=== PATIENT | male | born 1990 | race Hispanic/Latino ===

== ENCOUNTER 2021-05-29 20:23 | Inpatient (IN) | payer OTHER ==
[~2021-05-29] VITALS: Ht 165.1 cm; Wt 96.2 kg
[~2021-05-29 20:23] MED LIST: PANT20TA PO
[2021-05-29] MEDS ORDERED: 0.9%NACL 1000ML 1,000 ML IV ONE ×2 (20:30→21:00)
[2021-05-29 20:57] LABS: BASOPHILS % (AUTO) 0.5 % (0.0-5.0); EOSINOPHILS % (AUTO) 1.8 % (0.0-8.0); HEMATOCRIT 46.1 % (42-54); LYMPHOCYTES % (AUTO) 13.2 % (21.0-51.0); MEAN CORPUSCULAR HEMOGLOBIN 31.3 pg (27.0-33.0); MEAN CORPUSCULAR HGB CONC 33.6 g/dL (32.0-36.0); MEAN CORPUSCULAR VOLUME 92.9 fL (79-99); MONOCYTES % (AUTO) 6.3 % (3.0-13.0); NEUTROPHILS % (AUTO) 77.7 % (40.0-77.0); PLATELET COUNT (AUTO) 271 K/uL (130-400); RED BLOOD CELL COUNT(AUTO) 4.96 MIL/uL (4.50-6.20); RED CELL DISTRIBUTION WIDTH 12.6 % (11.0-15.5)
[2021-05-29] MEDS ORDERED: MORPHINE 4 MG SYG IV ONE (21:00)
[2021-05-29] MEDS ORDERED: ONDANSETRON 4MG INJ IVP ONE (21:00)
[2021-05-29] MEDS ORDERED: FAMOTIDINE 20MG VIAL IV ONE (21:00)
[2021-05-29] MEDS ORDERED: KETOROLAC 15MG/ML VIAL (15MG/ML) IV ONE (21:00)
[2021-05-29 21:01] LABS: APPEARANCE,URINE CLEAR (CLEAR); BILIRUBIN,URINE LARGE (NEGATIVE); COLOR,URINE YELLOW (YELLOW); GLUCOSE, URINE (UA) NEGATIVE (NEGATIVE); KETONES,URINE 5 mg/dL (NEGATIVE); LEUKOCYTE ESTERASE ,URINE NEGATIVE (NEGATIVE); NITRATE,URINE NEGATIVE (NEGATIVE); OCCULT BLOOD,URINE TRACE-INTACT (NEGATIVE); PROTEIN,URINE NEGATIVE (NEGATIVE)
[2021-05-29 21:07] LABS: CREATININE 0.8 mg/dL (0.5-1.5)
[2021-05-29 21:23] LABS: AMORPHOUS SEDIMENT,UR Many /LPF (None Seen); BACTERIA,URINE None Seen /HPF (None Seen); MUCUS,URINE Moderate LPF (None Seen); RBC,URINE 0-1 /HPF (0-1); SQUAMOUS EPITHELIAL CELL,UR Rare /HPF (0-2); WBC,URINE 0-1 /HPF (0-1)
[2021-05-29 21:34] LABS: ALBUMIN 3.3 g/dL (3.5-5.0); BILIRUBIN,TOTAL 3.6 mg/dL (0.2-1.0); TOTAL PROTEIN, SERUM 7.3 g/dL (6.0-8.3)
[2021-05-29] MEDS ORDERED: ONDANSETRON 4MG INJ IV PRN (23:30)
[2021-05-29] MEDS ORDERED: MAG/ALUM/SIMETH 30 ML UDCUP PO PRN (23:30)
[2021-05-29] MEDS ORDERED: LACTULOSE 20 GM/30 ML UDCUP PO PRN (23:30)
[2021-05-29] MEDS ORDERED: DIPHENHYDRAMINE HCL 25 MG CAPSULE PO PRN (23:30)
[2021-05-29] MEDS ORDERED: MORPHINE 2 MG SYG IV PRN (23:30)
[2021-05-29] MEDS ORDERED: ACETAMINOPHEN 325 MG TAB PO PRN (23:30)
[2021-05-29] MEDS ORDERED: NITROGLYCERIN 0.4 MG SL TAB SL PRN (23:30)
[2021-05-29] MEDS ORDERED: GUAIFENESIN-DM 200/20 MG 10 ML PO PRN (23:30)
[2021-05-29] MEDS: 0.9%NACL 1000ML 1,000 ML IV SCH (23:47)
[2021-05-30 02:05] VITALS: BP_SYST 128; BP_SYST 139; BP_DIAS 73; BP_DIAS 87
[2021-05-30 04:00] VITALS: BP 111/69
[2021-05-30] MEDS: ZOSYN 3.375GM+NS 50ML 50 ML IV SCH ×3 (04:35→22:36)
[2021-05-30 08:00] VITALS: BP 152/75
[2021-05-30] MEDS: 0.9%NACL 1000ML 1,000 ML IV SCH (08:10)
[2021-05-30] MEDS: FAMOTIDINE 20MG VIAL IV SCH ×2 (08:10→22:36)
[2021-05-30 12:00] VITALS: BP 140/102
[2021-05-30 16:00] VITALS: BP 140/75
[2021-05-30 20:00] VITALS: BP 123/69
[2021-05-30 21:24] LABS: HEPATITIS C ANTIBODY Non-Reactive (NEGATIVE)
[2021-05-30 21:34] LABS: HEPATITIS A IGM ANTIBODY Non-Reactive (Negative); HEPATITIS B CORE IGM ANTIBODY Non-Reactive (Negative); HEPATITIS B SURFACE ANTIGEN Non-Reactive (Negative)
[2021-05-31] VITALS (20 sets, daily range): BP systolic 104–122; BP diastolic 41–71
[2021-05-31] MEDS: 0.9%NACL 1000ML 1,000 ML IV SCH ×2 (04:13→15:59)
[2021-05-31 05:33] LABS: BASOPHILS % (AUTO) 0.3 % (0.0-5.0); EOSINOPHILS % (AUTO) 3.2 % (0.0-8.0); HEMATOCRIT 45.5 % (42-54); LYMPHOCYTES % (AUTO) 23.4 % (21.0-51.0); MEAN CORPUSCULAR HEMOGLOBIN 30.7 pg (27.0-33.0); MEAN CORPUSCULAR HGB CONC 31.9 g/dL (32.0-36.0); MEAN CORPUSCULAR VOLUME 96.4 fL (79-99); MONOCYTES % (AUTO) 5.8 % (3.0-13.0); NEUTROPHILS % (AUTO) 66.5 % (40.0-77.0); PLATELET COUNT (AUTO) 255 K/uL (130-400); RED BLOOD CELL COUNT(AUTO) 4.72 MIL/uL (4.50-6.20); RED CELL DISTRIBUTION WIDTH 12.5 % (11.0-15.5); WHITE BLOOD COUNT (AUTO) 7.4 K/uL (4.8-10.8)
[2021-05-31 06:06] LABS: BILIRUBIN,DIRECT 0.5 mg/dL (0.0-0.3); CREATININE 0.9 mg/dL (0.5-1.5); POTASSIUM 4.4 mmol/L (3.5-5.1); TOTAL PROTEIN, SERUM 6.8 g/dL (6.0-8.3)
[2021-05-31 06:09] LABS: HEMOGLOBIN A1C 5.4 % (4.0-6.0)
[2021-05-31] MEDS: ZOSYN 3.375GM+NS 50ML 50 ML IV SCH ×3 (06:27→22:23)
[2021-05-31] MEDS: FAMOTIDINE 20MG VIAL IV SCH ×2 (10:10→21:28)
[2021-05-31] MEDS ORDERED: IOHEXOL-350 50ML VIAL IV ONE (12:04)
[2021-05-31] MEDS ORDERED: LIDOCAINE PF 100MG/5ML (2%) SYRINGE 5ML ONE (12:45)
[2021-05-31] MEDS ORDERED: MIDAZOLAM HCL 1 MG/ML 2ML VIAL ONE (12:45)
[2021-05-31] MEDS ORDERED: PROPOFOL 10 MG/ML 20ML VIAL IV ONE (12:45)
[2021-05-31] MEDS ORDERED: SUCCINYLCHOLINE CHLORIDE 20 MG/ML 10 ML VIAL ONE (12:45)
[2021-05-31] MEDS ORDERED: FENTANYL CITRATE PF 50 MCG/1 ML 2ML VIAL ONE (12:46)
[2021-05-31] MEDS ORDERED: CEFAZOLIN SODIUM 1 GM VIAL ONE (13:17)
[2021-06-01] VITALS (7 sets, daily range): BP systolic 109–142; BP diastolic 56–89
[2021-06-01 05:12] LABS: BASOPHILS % (AUTO) 0.2 % (0.0-5.0); EOSINOPHILS % (AUTO) 0.3 % (0.0-8.0); HEMATOCRIT 44.6 % (42-54); LYMPHOCYTES % (AUTO) 10.4 % (21.0-51.0); MEAN CORPUSCULAR HEMOGLOBIN 30.5 pg (27.0-33.0); MEAN CORPUSCULAR HGB CONC 32.5 g/dL (32.0-36.0); MEAN CORPUSCULAR VOLUME 93.9 fL (79-99); MONOCYTES % (AUTO) 5.9 % (3.0-13.0); NEUTROPHILS % (AUTO) 82.9 % (40.0-77.0); PLATELET COUNT (AUTO) 259 K/uL (130-400); RED BLOOD CELL COUNT(AUTO) 4.75 MIL/uL (4.50-6.20); RED CELL DISTRIBUTION WIDTH 12.1 % (11.0-15.5); WHITE BLOOD COUNT (AUTO) 11.9 K/uL (4.8-10.8)
[2021-06-01 05:43] LABS: ALBUMIN 2.6 g/dL (3.5-5.0); BILIRUBIN,DIRECT 0.2 mg/dL (0.0-0.3); BILIRUBIN,TOTAL 0.5 mg/dL (0.2-1.0); CREATININE 0.9 mg/dL (0.5-1.5); POTASSIUM 4.1 mmol/L (3.5-5.1); TOTAL PROTEIN, SERUM 6.3 g/dL (6.0-8.3)
[2021-06-01] MEDS: ZOSYN 3.375GM+NS 50ML 50 ML IV SCH ×3 (05:46→21:11)
[2021-06-01] MEDS: FAMOTIDINE 20MG VIAL IV SCH ×2 (08:38→21:10)
[2021-06-01] MEDS: 0.9%NACL 1000ML 1,000 ML IV SCH (21:11)
[2021-06-02 03:43] VITALS: BP 123/65
[2021-06-02 04:33] LABS: BASOPHILS % (AUTO) 0.3 % (0.0-5.0); EOSINOPHILS % (AUTO) 2.8 % (0.0-8.0); HEMATOCRIT 44.6 % (42-54); LYMPHOCYTES % (AUTO) 30.5 % (21.0-51.0); MEAN CORPUSCULAR HEMOGLOBIN 30.8 pg (27.0-33.0); MEAN CORPUSCULAR HGB CONC 32.3 g/dL (32.0-36.0); MEAN CORPUSCULAR VOLUME 95.5 fL (79-99); MONOCYTES % (AUTO) 9.6 % (3.0-13.0); NEUTROPHILS % (AUTO) 56.2 % (40.0-77.0); PLATELET COUNT (AUTO) 226 K/uL (130-400); RED BLOOD CELL COUNT(AUTO) 4.67 MIL/uL (4.50-6.20); RED CELL DISTRIBUTION WIDTH 12.5 % (11.0-15.5); WHITE BLOOD COUNT (AUTO) 7.1 K/uL (4.8-10.8)
[2021-06-02 04:49] LABS: ALBUMIN 2.7 g/dL (3.5-5.0); BILIRUBIN,TOTAL 0.3 mg/dL (0.2-1.0); CREATININE 0.8 mg/dL (0.5-1.5); TOTAL PROTEIN, SERUM 6.1 g/dL (6.0-8.3)
[2021-06-02] MEDS: ZOSYN 3.375GM+NS 50ML 50 ML IV SCH ×3 (05:46→20:11)
[2021-06-02 07:00] VITALS: BP 114/61
[2021-06-02] MEDS: FAMOTIDINE 20MG VIAL IV SCH ×2 (08:21→20:11)
[2021-06-02 11:00] VITALS: BP 154/78
[2021-06-02 16:10] VITALS: BP 134/63
[2021-06-02 19:51] VITALS: BP 150/90
[2021-06-02] MEDS: 0.9%NACL 1000ML 1,000 ML IV SCH (20:12)
[2021-06-02 23:22] VITALS: BP 132/74
[2021-06-03] VITALS (26 sets, daily range): BP systolic 124–158; BP diastolic 64–96
[2021-06-03] MEDS: 0.9%NACL 1000ML 1,000 ML IV SCH ×3 (03:48→21:31)
[2021-06-03] MEDS: ZOSYN 3.375GM+NS 50ML 50 ML IV SCH ×3 (04:31→21:31)
[2021-06-03 05:06] LABS: BASOPHILS % (AUTO) 0.6 % (0.0-5.0); EOSINOPHILS % (AUTO) 2.6 % (0.0-8.0); HEMATOCRIT 44.6 % (42-54); LYMPHOCYTES % (AUTO) 29.5 % (21.0-51.0); MEAN CORPUSCULAR HEMOGLOBIN 30.9 pg (27.0-33.0); MEAN CORPUSCULAR HGB CONC 32.5 g/dL (32.0-36.0); MEAN CORPUSCULAR VOLUME 94.9 fL (79-99); MONOCYTES % (AUTO) 8.6 % (3.0-13.0); NEUTROPHILS % (AUTO) 58.1 % (40.0-77.0); PLATELET COUNT (AUTO) 246 K/uL (130-400); RED CELL DISTRIBUTION WIDTH 12.3 % (11.0-15.5); WHITE BLOOD COUNT (AUTO) 8.4 K/uL (4.8-10.8)
[2021-06-03 05:46] LABS: ALBUMIN 2.9 g/dL (3.5-5.0); BILIRUBIN,DIRECT 0.2 mg/dL (0.0-0.3); BILIRUBIN,TOTAL 0.4 mg/dL (0.2-1.0); CREATININE 0.9 mg/dL (0.5-1.5); TOTAL PROTEIN, SERUM 6.5 g/dL (6.0-8.3)
[2021-06-03] MEDS: FAMOTIDINE 20MG VIAL IV SCH ×2 (08:57→21:31)
[2021-06-03] MEDS ORDERED: SUCCINYLCHOLINE 200MG/10ML SYR ONE (15:07)
[2021-06-03] MEDS ORDERED: GLYCOPYRROLATE 1 MG/5 ML SYRINGE ONE (15:07)
[2021-06-03] MEDS ORDERED: MIDAZOLAM HCL 1 MG/ML 2ML VIAL ONE (15:07)
[2021-06-03] MEDS ORDERED: LIDOCAINE PF 100MG/5ML (2%) SYRINGE 5ML ONE (15:07)
[2021-06-03] MEDS ORDERED: ONDANSETRON 4MG INJ ONE ×2 (15:07→17:55)
[2021-06-03] MEDS ORDERED: PROPOFOL 10 MG/ML 20ML VIAL IV ONE (15:07)
[2021-06-03] MEDS ORDERED: NEOSTIGMINE 5MG/5ML SYR IV ONE (15:07)
[2021-06-03] MEDS ORDERED: DEXAMETHASONE SOD PHOSPHATE 10MG/ML 1ML VIAL ONE (15:07)
[2021-06-03] MEDS ORDERED: ROCURONIUM 10MG/1ML SYR 10 MG/ML ML ONE (15:08)
[2021-06-03] MEDS ORDERED: FENTANYL CITRATE PF 50 MCG/1 ML 2ML VIAL ONE ×2 (15:08→16:21)
[2021-06-03] MEDS ORDERED: LIDOCAINE HCL 1% MDV 50ML VIAL ONE (15:56)
[2021-06-03] MEDS ORDERED: BUPIVACAINE/PF 0.25% 30ML VIAL IJ ONE (15:56)
[2021-06-03] MEDS ORDERED: MEPERIDINE-PF 25 MG/ML SYG ONE ×2 (17:53→18:03)
[2021-06-04 04:00] VITALS: BP 155/77
[2021-06-04] MEDS: ZOSYN 3.375GM+NS 50ML 50 ML IV SCH (05:10)
[2021-06-04] MEDS: 0.9%NACL 1000ML 1,000 ML IV SCH (05:10)
[2021-06-04 07:57] VITALS: BP 140/82
[2021-06-04] MEDS: FAMOTIDINE 20MG VIAL IV SCH (08:34)
== END 2021-06-04 09:35 | disposition home or self-care (01) | DRG 419 ==
LOC: EDH 20:23 → EDHIP 20:24 → 3DH 05-30 01:34
PROVIDERS: ADMIT Hospitalist; ATTEND Hospitalist
PROC: 0F798ZZ Dilation of Common Bile Duct, Via Natural or Artificial Opening Endoscopic (ICD-10-PCS; 2021-05-31)
PROC: BF101ZZ Fluoroscopy of Bile Ducts using Low Osmolar Contrast (ICD-10-PCS; 2021-05-31)
PROC: 0FT44ZZ Resection of Gallbladder, Percutaneous Endoscopic Approach (ICD-10-PCS; principal; 2021-06-03 16:25)
DX: K80.71 Calculus of gallbladder and bile duct without cholecystitis with obstruction (principal); E66.9 Obesity, unspecified; K82.8 Other specified diseases of gallbladder; R79.89 Other specified abnormal findings of blood chemistry; I10 Essential (primary) hypertension; F17.210 Nicotine dependence, cigarettes, uncomplicated; E11.9 Type 2 diabetes mellitus without complications; J45.909 Unspecified asthma, uncomplicated; G40.909 Epilepsy, unspecified, not intractable, without status epilepticus; I25.10 Atherosclerotic heart disease of native coronary artery without angina pectoris; Z20.822 Contact with and (suspected) exposure to COVID-19; Z68.35 Body mass index [BMI] 35.0-35.9, adult; I25.2 Old myocardial infarction; Z86.73 Personal history of transient ischemic attack (TIA), and cerebral infarction without residual deficits; Z79.899 Other long term (current) drug therapy
CPT/HCPCS: 36415; 43262; 43264; 71045; 74181; 74330; 76705; 78226; 80048; 80053; 80061; 80074; 80076; 81001; 82150; 83036; 83690; 85025; 87635; A4606; A9537; C1769; C1773; G0378; J0330; J0690; J1100; J1885; J2001; J2175; J2250; J2270; J2405; J2543; J2704; J2710; J3010; J3490; J7030; Q9967

== ENCOUNTER 2021-06-21 15:57 | Emergency (ER) | payer OTHER ==
[~2021-06-21] VITALS: Ht 165.1 cm; Wt 90.7 kg
[2021-06-21 16:02] VITALS: BP 117/79
== END 2021-06-21 16:27 | disposition home or self-care (01) ==
LOC: EDH 15:57
DX: Z48.02 Encounter for removal of sutures (principal); Z90.49 Acquired absence of other specified parts of digestive tract
CPT/HCPCS: 99281